=== PATIENT | female | born 1980 | race Caucasian/White ===

== ENCOUNTER 2017-11-16 22:31 | Emergency (ER) | payer OTHER ==
[~2017-11-16] VITALS: Ht 167.6 cm; Wt 81.6 kg
[2017-11-16 22:35] VITALS: BP_SYST 116
[2017-11-16] MEDS ORDERED: NACL 0.9% 1,000 ML IV ONE (22:49)
[2017-11-16] MEDS ORDERED: DIPHENHYDRAMINE INJ 50 MG/ML VIAL IVP ONE (23:00)
[2017-11-16] MEDS ORDERED: MORPHINE 2 MG/ML INJ. SYRINGE IVP ONE (23:00)
[2017-11-16 23:36] LABS: CALCIUM 9.1 mg/dL (8.4-11.0); CREATININE 0.76 mg/dL (0.55-1.30); POTASSIUM 3.6 mmol/L (3.5-5.1)
[2017-11-16 23:43] LABS: HEMATOCRIT 38.8 % (36-48); HEMOGLOBIN 13.6 g/dL (12.0-16.0); MEAN CORPUSCULAR HEMOGLOBIN 33 pg (27-31); MEAN CORPUSCULAR HGB CONC 35 % (32-36); MEAN CORPUSCULAR VOLUME 93 fL (79.0-98.0); PLATELET COUNT (AUTO) 319 K/uL (130-430); RED BLOOD CELL COUNT(AUTO) 4.16 MIL/uL (4.2-6.2); RED CELL DISTRIBUTION WIDTH 11.6 % (9.0-15.0); WHITE BLOOD COUNT (AUTO) 8.5 K/uL (4.8-10.8)
[2017-11-16 23:59] LABS: INR 1.1 (0.8-1.2)
[2017-11-17 00:40] LABS: BASOPHILS % (MANUAL) 0 % (0-2); EOSINOPHILS % (MANUAL) 0 % (0-7); LYMPHOCYTES % (MANUAL) 41 % (20-46); MONOCYTES % (MANUAL) 12 % (0-11)
[2017-11-17] MEDS ORDERED: IBUPROFEN 600 MG TABLET PO ONE (01:00)
[2017-11-17 01:35] VITALS: BP_SYST 110
== END 2017-11-17 01:35 | disposition home or self-care (01) ==
LOC: SED 22:31
DX: R07.89 Other chest pain (principal); F17.200 Nicotine dependence, unspecified, uncomplicated; Z86.79 Personal history of other diseases of the circulatory system; Z88.0 Allergy status to penicillin; Z88.1 Allergy status to other antibiotic agents
CPT/HCPCS: 36415; 80048; 83880; 84484; 85007; 85027; 85610; 93005; 96374; 96375; 99285; J1200; J2270; J7030; 85025